=== PATIENT | male | born 1995 | race Two or more races ===

== ENCOUNTER → 2024-11-28 | Outpatient (CLI) | payer BC, SELFPAY ==
[2024-11-28 08:06] LABS: Collection Type, Urine Clean Catch
[2024-11-28 08:38] LABS: Basophils % (Auto) 0 % (0-2.5); Eosinophils # (Auto) 0.1 Thou/mm3 (0.0-0.5); Eosinophils % (Auto) 2 % (0-10); Hematocrit 45.9 % (41.0-53.0); Hemoglobin 16.3 g/dL (13.5-16.0); Immature Granulocytes % (Auto) 0 % (0-0); Lymphocytes % (Auto) 41 % (10-50); Mean Corpuscular HGB Conc 35.5 g/dl (31.0-37.0); Mean Corpuscular Hemoglobin 30.8 pg (25.0-35.0); Mean Corpuscular Volume 87 fL (80-100); Monocytes # (Auto) 0.4 Thou/mm3 (0.0-0.8); Monocytes % (Auto) 7 % (0-12); Neutrophils # (Auto) 2.4 Thou/mm3 (1.8-7.7); Neutrophils % (Auto) 50 % (37-80); Nucleated Red Blood Cell % 0 /100 WBC (0); Platelet Count 256 Thou/mm3 (140-440); RDW Standard Deviation 39.3 fL (35.1-43.9); White Blood Count 4.9 Thou/mm3 (3.8-10.6)
[2024-11-28 08:52] LABS: Glucose Estimated Average 97 mg/dL (80-131)
[2024-11-28 08:58] LABS: Alanine Aminotransferase 62 U/L (10-49); Albumin, Serum 4.7 gm/dL (3.5-5.0); Alkaline Phosphatase 58 U/L (46-116); Anion Gap 8 (7-16); Aspartate Amino Transferase 68 U/L (0-34); BUN/Creatinine Ratio 16 Ratio (12-20); Bilirubin,Total 0.9 mg/dL (0.3-1.2); Blood Urea Nitrogen 16 mg/dL (9-23); Calcium 9.7 mg/dL (8.3-10.6); Calcium (Corrected) 9.7 mg/dL (8.5-10.1); Cardiac Risk Estimate 4.3 RATIO (4.0-6.7); Chloride 105 mMol/L (98-107); Cholesterol 233 mg/dL (132-200); Globulin 2.3 gm/dL (2.3-3.5); Glucose 102 mg/dL (74-106); HDL Cholesterol 54 mg/dL (40-60); LDL Cholesterol,Calculated 145 mg/dL (0-130); Osmolality,Calculated 280 (275-295); Potassium 4.4 mMol/L (3.4-5.1); Sodium 140 mMol/L (136-145); Thyroid Stimulating Hormone 1.62 uIU/mL (0.55-4.78); Triglycerides 171 mg/dL (30-150); eGFR > 60 See Note
[2024-11-28 09:05] LABS: Vitamin D 25 Hydroxy Total 16.9 ng/mL (7.3-40.2)
[2024-11-28 09:11] LABS: Bacteria,Urine Rare; Bilirubin,Urine Negative (Negative); Blood,Urine Negative (Negative); Clarity,Urine Clear (Clear/Hazy); Color,Urine Yellow (Lt Yel-Yel); Culture Indicated,Urine Not Indicated; Glucose, Urine Negative (Negative); Ketones,Urine Negative (Negative); Leukocyte Esterase,Urine Negative (Negative); Nitrite,Urine Negative (Negative); Protein,Urine Negative (Neg - Trace); RBC,Urine 2 /hpf (0-3); Specific Gravity,Urine 1.029 (1.001-1.035); Squamous Epithelial Cell,Urine < 1 /hpf (0-5); Urobilinogen,Urine Negative mg/dL (0.0-1.0); WBC,Urine 2 /hpf (0-5)
== END | disposition home or self-care (01) ==
PROVIDERS: PCP Registered Nurse; Referring Provider Registered Nurse; Visit Provider Registered Nurse
DX: Z00.00 Encounter for general adult medical examination without abnormal findings (principal)
CPT/HCPCS: 36415; 80053; 80061; 81001; 82306; 83036; 84443; 85025

== ENCOUNTER 2025-03-25 19:25 | Emergency (ER) | payer BC, SELFPAY ==
[2025-03-25 19:26] VITALS: BMI 34.5
[2025-03-25 19:41] VITALS: BP 128/86; PULSE 106; RESP 20; TEMP 36.9; O2SAT 100
--- NOTE | 2025-03-25 19:45 | EDNOTE_ITS ---
Nausea/Vomit./Diarrhea-RME/HPI General Chief complaint: Nausea/Vomiting/Diarrhea Stated complaint: VOMITING X 0300 Time Seen by Provider: 03/25/25 19:40 Arrival date/time: 03/25/25 19:25 29-year-old male reports with complaints of persistent vomiting after taking a dose of Zepbound. Patient reports self-medicating with other persons medications he took the medication then developed some mild abdominal cramping and then persistent vomiting. Patient states last vomit was about 30 minutes ago but there was a small string of blood that concerned him. He denies any fever chills shortness of breath chest pain diarrhea constipation blood or mucus in stools or current abdominal pain. Patient also denies taking any other medications or any other past medical history Limitations: no limitations Related Data Home Medications ?Medication ?Instructions ?Recorded ?Confirmed No Known Home Medications 01/12/20 08/0 01/23 Allergies Allergy/AdvReac Type Severity Reaction Status Date / Time No Known Allergies Allergy Verified 03/25/25 19:27 Review of Systems Constitutional Constitutional: Denies chills, Denies fever(s), Denies headache(s) and Denies weakness ENT Ears, Nose, Mouth, and Throat: Denies headache(s) and Denies vertigo Cardiovascular Cardiovascular: Denies chest pain, Denies diaphoresis and Denies dyspnea Respiratory Respiratory: Denies cough and Denies dyspnea Gastrointestinal Gastrointestinal: Reports abdominal pain, Reports hematemesis, Denies hematochezia, Denies melena and Reports vomiting Genitourinary Genitourinary: Denies difficulty urinating, Denies dysuria and Denies flank pain Musculoskeletal Musculoskeletal: Denies back pain and Denies muscle cramps Integumentary/Breasts Skin/Breast: Denies unusual bruising and Denies wounds Neurologic Neurologic: Denies headache(s), Denies vertigo and Denies weakness Psychiatric Psychiatric: Denies anxiety and Denies change in appetite Hematologic/Lymphatic Hematologic/Lymphatic: Denies easy bleeding and Denies easy bruising ED Exam General Limitations: Present no limitations General appearance: Present alert and in no apparent distress Head Head exam: Present atraumatic Eye Eye exam: Present normal appearance, PERRL and EOMI ENT ENT exam: Present normal exam, normal oropharynx and mucous membranes moist Neck Neck exam: Present normal inspection, full ROM and trachea midline Chest Chest inspection: Present normal inspection and symmetric chest wall rise Respiratory Respiratory exam: Present normal lung sounds bilaterally Cardiovascular Cardiovascular exam: Present regular rate, normal rhythm and normal heart sounds Abdominal Exam Abdominal exam: Present soft and normal bowel sounds; Absent distention, tenderness, guarding, rebound, ascites, mass or bruit Extremities Exam Extremities exam: Present normal inspection and full ROM Back Exam Back exam: Present normal inspection and full ROM Neurological Exam Neurological exam: Present alert, oriented X3 and CN II-XII intact Psychiatric Psychiatric exam: Present normal affect and normal mood Skin Skin exam: Present warm, dry, intact and normal color Course Course Course Narrative: 29-year-old male reports complaints of abdominal upset and nausea after taking medications not prescribed to him. Patient has a benign exam and reports symptoms have all resolved with the exception of the vomiting. He is stable nontoxic-appearing with stable vital signs he is educated on the importance of not taking medications that are not prescribed to him or belonging to someone else he will be discharged home advised to follow-up with his primary care provider Quality Measures none Orders Category Date Time Status Ondansetron Odt [Zofran Odt] Med 03/25/25 19:45 Once 4 mg PO X1 ONE Vital Signs Vital signs: Vital Signs Temperature 98.4 F 03/25/25 19:41 Pulse Rate 106 H 03/25/25 19:41 Respiratory Rate 20 03/25/25 19:41 Blood Pressure 128/86 H 03/25/25 19:41 Pulse Oximetry (%) 100 03/25/25 19:41 Oxygen Delivery Method Room Air 03/25/25 19:41 Nausea/Vomiting/Diarrhea Patient data External records reviewed:: None Clinical information provided by:: patient Social determinants that could affect healthcare access:: none Patient has the following chronic illnesses:: none How is presenting disease/condition affected by chronic disease/condition?: no chronic disease Evaluation data The following diagnostics were reviewed and interpreted by me:: other (specify) (none) Lab and/or radiology exams considered but not ordered:: n/a Interpretation Summary: n/a Medications / Prescriptions Medications / Prescriptions considered but not ordered:: none Medication administrations:: Zofran ODT Consultations Consultation(s) initiated? (list below): No Diagnosis Nausea Differential Diagnosis: gastroenteritis, drug-induced nausea and vomiting and dehydration Most likely diagnosis given after review of the tests above:: Vomiting secondary to drug Admission Indicated Admission indicated?: not indicated Admission Request Was there a request for admission?: No Disposition Plan Disposition Plan: Discharge Discharge Attestation Discharge Attestation: The patient and all family members were given an opportunity to ask questions and understood the discharge instructions. Discharge instructions specifically effects, indications for sooner follow up or return to the emergency department, and the expected course of current diagnosis. Patient condition: Stable Discharge Plan Plan Patient Disposition: HOME (Self Care) Prescriptions/Referrals Prescriptions/Med Rec: No Action No Known Home Medications Problem List Clinical Impression: Vomiting, Medication adverse effect Patient/Caregiver Discharge Instructions Discharge Activity: activity as tolerated Education Materials: ED Vomiting (Adult) Additional Instructions: Do not take medication that is not prescribed for you therefore do not take any more of the Zepbound hydrate well follow with your primary care provider if symptoms does not improve in 24 to 48 hours. Return to emergency department if symptoms should worsen Print Language: Iraqi Stand Alone Forms: Lizzette Award Info., Patient Portal Info Letter
[2025-03-25] MEDS: ONDANSETRON ODT 4 MG TABRAP PO (20:18)
== END 2025-03-25 20:20 | disposition home or self-care (01) ==
LOC: SERX 20:23
PROVIDERS: Emergency Provider Emergency Medicine; PCP Family Medicine
DX: T50.905A Adverse effect of unspecified drugs, medicaments and biological substances, initial encounter (principal)
CPT/HCPCS: 99282; Q0162